=== PATIENT | female | born 1975 | race African-American/Black ===

== ENCOUNTER 2020-11-30 08:28 | Emergency (ER) | payer OTHER, MEDICAID ==
[~2020-11-30] VITALS: Ht 172.7 cm; Wt 70.0 kg
[2020-11-30 09:42] LABS: BASOPHILS % 1.6 % (0.0-2.0); EOSINOPHILS % 6.5 % (0.0-5.0); HEMATOCRIT. 30.7 % (36.0-48.0); HEMOGLOBIN. 9.6 g/dL (12.0-16.0); LYMPHOCYTES % 15.2 % (20.0-50.0); MEAN CORPUSCULAR HEMOGLOBIN 22.2 pg (28.0-32.0); MEAN CORPUSCULAR VOLUME 70.5 fL (81.0-99.0); MEAN PLATELET VOLUME 8.2 fl (7.4-10.4); MONOCYTES % 12.1 % (2.0-8.0); NEUTROPHILS % 64.6 % (40.0-76.0); PLATELET 247 x1000/uL (130-400); RED BLOOD CELL COUNT 4.35 mill/uL (4.2-5.4); RED CELL DISTRIBUTION WIDTH 14.7 % (11.6-14.6)
[2020-11-30 09:45] LABS: CHLORIDE 109 mEq/L (98-107)
[2020-11-30] MEDS ORDERED: CLONIDINE 0.2MG TABLET PO ONE (13:15)
[2020-11-30] MEDS ORDERED: HYDRALAZINE 20MG/ML VIAL IV ONE ×2 (14:00→16:00)
[2020-11-30 16:00] VITALS: BP 171/92
== END 2020-11-30 16:12 | disposition short-term general hospital (02) ==
LOC: ER 08:41
DX: I12.0 Hypertensive chronic kidney disease with stage 5 chronic kidney disease or end stage renal disease (principal); E11.22 Type 2 diabetes mellitus with diabetic chronic kidney disease; N17.9 Acute kidney failure, unspecified; N18.6 End stage renal disease; M32.9 Systemic lupus erythematosus, unspecified; Z88.6 Allergy status to analgesic agent; Z99.2 Dependence on renal dialysis
CPT/HCPCS: 36415; 71045; 80053; 83880; 84484; 85025; 93005; 96374; 96376; 99285; J0360